=== PATIENT | female | born 1975 | race African-American/Black ===

== ENCOUNTER → 2019-09-07 12:34 | Outpatient (CLI) | payer OTHER, MEDICAID, SELFPAY ==
--- NOTE | 2019-09-07 | DI.MRI.S_ITS ---
PROCEDURE: MR KNEE LT W CON INDICATIONS: ACUTE TEAR MEDIAL MENISCUS TECHNIQUE: After the administration of 50 mL of dilute intra-articular Gadolinium contrast, sagittal T1 spin echo with fat saturation and PD fast spin echo with fat saturation, coronal T1 spin echo with and without fat saturation, coronal T2 fast spin echo with fat saturation, axial PD fast spin echo with fat saturation through the knee. COMPARISON: [facility], CR, XR KNEE ARTHRITIC SERIES LT, 03/31/2015, 8:02. FINDINGS: Image quality: Excellent. Menisci: Irregularity of the free margin of the posterior horn of the medial meniscus in keeping with radial tear come for example image 13/8, image 23/11. Lateral meniscus intact. Cruciate ligaments: Anterior cruciate ligament appears intact. Posterior cruciate ligament appears intact. Medial structures: The medial collateral ligament appears intact. Semimembranosus tendon appears intact. Visualized portions of the pes anserinus tendons appear normal. No abnormal bursal fluid. Lateral structures: The lateral collateral ligament intact. Biceps femoris tendon appears intact. Popliteus tendon grossly unremarkable. Iliotibial band appears intact. Anterior structures: Quadriceps tendon intact. Medial and lateral patellofemoral ligaments intact. There is mild patellar tendinopathy. Prepatellar and superficial infrapatellar subcutaneous edema/fluid. Bones and cartilage: No focal marrow contusion or discrete low signal fracture line. Sub-5 mm marrow lesion present within the posterior medial distal femur, for example image 21/9. This finding technically nonspecific Within the medial compartment, diffuse mild partial-thickness loss of the femoral tibial articular cartilage Within the lateral compartment, mild diffuse surface fraying of the femoral and tibial articular cartilage Within the patellofemoral compartment, diffuse surface fraying of the femoral trochlear and patellar cartilage. Joint space: No joint effusion. Epstein's cyst measuring approximately 4 cm in a cephalocaudad dimension. No specific evidence of intra-articular loose body. IMPRESSION: Medial meniscal tear involving the free margin of the posterior horn. Diffuse mild patellar tendinopathy with adjacent fluid/edema. Epstein's cyst Mild joint degeneration as above Subcentimeter round lesion within the posterior aspect of the medial distal femoral diaphysis, probably incidental enchondroma versus benign fibrous lesion although technically nonspecific. If clinically warranted, recommend long-term surveillance with serial knee radiographs Dictated by: Quincy Hampton M.D. on 09/07/2019 at 14:40 Approved by: Quincy Hampton M.D. on 09/07/2019 at 14:54
--- NOTE | 2019-09-07 | DI.RAD.S_ITS ---
PROCEDURE: FL KNEE INJECTION MR/CT LT COMPARISON: [facility], MR, MR KNEE LT W CON, 09/07/2019, 13:06. INDICATIONS: ACUTE TEAR MEDIAL MENISCUS TECHNIQUE: The indications, alternatives, benefits, risks, and complications of the procedure were explained to the patient. Written informed consent was obtained and placed in the chart. The left knee joint was examined fluoroscopically and a site for needle placement chosen. The skin was prepped and draped in a sterile fashion, and 1% Lidocaine infiltrated from skin down to joint capsule. A spinal needle was inserted into the joint, and a small amount of iodinated contrast media injected to confirm intra-articular placement of the needle tip. This was followed by approximately 40 mL dilute solution of a gadolinium containing MR contrast agent. The needle was removed and a dressing was applied. The patient was given postprocedural instructions and sent to the MR suite for imaging. FINDINGS: A single fluoroscopic spot image demonstrates intra-articular location of injected iodinated contrast. IMPRESSION: Successful fluoroscopically guided administration of dilute Gadolinium solution into the left knee joint for MR arthrogram. Dictated by: Quincy Hampton M.D. on 09/07/2019 at 17:01 Approved by: Quicny Hampton M.D. on 09/07/2019 at 17:02
== END ==
PROVIDERS: Referring Provider Nurse Practitioner Gerontology; Visit Provider Nurse Practitioner Gerontology
DX: S83.242A Other tear of medial meniscus, current injury, left knee, initial encounter (principal); M25.562 Pain in left knee; M71.22 Synovial cyst of popliteal space [Baker], left knee; M17.12 Unilateral primary osteoarthritis, left knee; M67.962 Unspecified disorder of synovium and tendon, left lower leg
CPT/HCPCS: 27369; 73722; 77002